=== PATIENT | male | born 1990 | race Caucasian/White ===

== ENCOUNTER 2021-04-11 16:51 | Emergency (ER) | payer BC ==
[~2021-04-11] VITALS: Ht 175.3 cm; Wt 55.0 kg
[2021-04-11 17:14] VITALS: BP 126/74
[2021-04-11] MEDS ORDERED: MUPI22OI2 TP (17:33)
[2021-04-11] MEDS ORDERED: AMOX500C PO (17:33)
--- NOTE | 2021-04-11 17:33 | PHYS DOC ---
Past Medical History Past Medical History: No Pertinent History (NALINI SHETTY APRN) Past Surgical History: No Surgical History (NALINI SHETTY APRN) Smoking Status: Current Every Day Smoker Additional Information: 1 PK/DAY Alcohol Use: None (NALINI SHETTY APRN) General Adult EDM: Chief Complaint: SORE THROAT HPI: HPI: Patient is a 30 year old male who presents with swollen sore throat for last 2 days. He also has areas of yellow crusted facial sores. He denies fever, nausea, vomiting, diarrhea, abdominal pain, headache, dizziness, nasal congestion, ear pain, chest pain, cough, shortness of breath. States he is still eating and drinking is just painful. He is a smoker. Rates his pain sore throat pain 8 out of 10. (NALINI SHETTY APRN) Review of Systems: Review of Systems: Constitutional: Denies fever or chills. [] Eyes: Denies change in visual acuity. [] HENT: Denies nasal congestion or +sore throat. [] Respiratory: Denies cough or shortness of breath. [] Cardiovascular: Denies chest pain or edema. [] GI: Denies abdominal pain, nausea, vomiting, bloody stools or diarrhea. [] : Denies dysuria. [] Musculoskeletal: Denies back pain or joint pain. [] Integument: Denies rash. +Facial rash[] Neurologic: Denies headache, focal weakness or sensory changes. [] Endocrine: Denies polyuria or polydipsia. [] Lymphatic: Denies swollen glands. [] Psychiatric: Denies depression or anxiety. [] (NALINI SHETTY [employer]ER) Heart Score: C/O Chest Pain: No Risk Factors: Risk Factors: DM, Current or recent (<one month) smoker, HTN, HLP, family history of CAD, obesity. Risk Scores: Score 0 - 3: 2.5% MACE over next 6 weeks - Discharge Home Score 4 - 6: 20.3% MACE over next 6 weeks - Admit for Clinical Observation Score 7 - 10: 72.7% MACE over next 6 weeks - Early Invasive Strategies (NALINI SHETTY APRN) Allergies: Allergies: Allergies Coded Allergies Type Severity Reaction Last Updated Verified No Known Drug Allergies 04/11/21 No (BAFUS,NALINI M [employer]) Physical Exam: PE: Constitutional: Well developed, well nourished, no acute distress, non-toxic appearance. [] HENT: Normocephalic, atraumatic, bilateral external ears normal, oropharynx moist, no oral exudates, nose normal. Tonsil swollen 1+ with exudates[] Eyes: PERRLA, EOMI, conjunctiva normal, no discharge. [] Neck: Normal range of motion, no tenderness, supple, no stridor. [] Cardiovascular:Heart rate regular rhythm, no murmur [] Lungs & Thorax: Bilateral breath sounds clear to auscultation [] Abdomen: Bowel sounds normal, soft, no tenderness, no masses, no pulsatile masses. [] Skin: Warm, dry, no erythema, no rash. Impetigo patches to face [] Back: No tenderness, no CVA tenderness. [] Extremities: No tenderness, no cyanosis, no clubbing, ROM intact, no edema. [] Neurologic: Alert and oriented X 3, normal motor function, normal sensory function, no focal deficits noted. [] Psychologic: Affect normal, judgement normal, mood normal. [] (NALINI SHETTY [employer]) Current Patient Data: Vital Signs: Vital Signs Date Time Temp Pulse Resp B/P (MAP) Pulse Ox O2 Delivery O2 Flow Rate FiO2 04/11/21 17:14 98.4 76 16 126/74 (91) 97 Room Air 98.4 (NALINI SHETTY [employer]) EKG: EKG: [] (NALINI SHETTY [employer]) Radiology/Procedures: Radiology/Procedures: [] [facility] [employer] [facility] Course & Med Decision Making: Course & Med Decision Making Pertinent Labs and Imaging studies reviewed. (See chart for details) See HPI. Alert and oriented x4. Ambulatory with steady gait. Speaks in full clear sentences. No trismus. Uvula midline and nonswollen. Bilateral tonsils are 1+ swelling with exudates. Rapid strep is positive. Patient has impetigo patches to his face. Vital signs within normal limits. No respiratory distress. [] (NALINI SHETTY [employer]) Dragon Disclaimer: Dragon Disclaimer: This electronic medical record was generated, in whole or in part, using a voice recognition dictation system. (NALINI SHETTY APRN) Departure Departure Impression: Primary Impression: Strep throat Additional Impression: Impetigo Disposition: HOME / SELF CARE / HOMELESS Condition: STABLE Referrals: NO PCP (PCP) Patient Instructions: Impetigo, Strep Throat Additional Instructions: Take medication as prescribed and with food. Drink plenty of fluids. Take ibuprofen for any of your pain. Follow-up with your primary care physician. Scripts Amoxicillin (AMOXICILLIN) 500 Mg Capsule 1 CAP PO BID for 10 Days, #20 CAP Prov: NALINI SHETTY APRN 04/11/21 Mupirocin (MUPIROCIN OINTMENT) 22 Gm Oint...g. 1 JESSICA TP TID for WOUND CARE, #1 EACH Prov: NALINI SHETTY APRN 04/11/21 Attending Signature I have participated in the care of this patient and I have reviewed and agree with all pertinent clinical information above including history, exam, and recommendations. (JOEY OWEN DO) NALINI SHETTY APRN Apr 11, 2021 17:33 JOEY OWEN DO Apr 11, 2021 17:45
[2021-04-11] MEDS ORDERED: DEXAMETHASONE 4 MG TABLET PO ONE (17:45)
== END 2021-04-11 18:05 | disposition home or self-care (01) ==
LOC: ER 16:51
DX: J02.0 Streptococcal pharyngitis (principal); B95.0 Streptococcus, group A, as the cause of diseases classified elsewhere; L01.00 Impetigo, unspecified; F17.200 Nicotine dependence, unspecified, uncomplicated
CPT/HCPCS: 87880; 99283